=== PATIENT | male | born 1990 | race African-American/Black ===

== ENCOUNTER 2017-08-21 22:29 | Inpatient (IN) | payer MEDICAID ==
[~2017-08-21] VITALS: Ht 177.8 cm; Wt 58.8 kg
[2017-08-21] MEDS ORDERED: LORazepam 2 MG/ML VIAL IM ONE (23:45)
[2017-08-21] MEDS ORDERED: DiphenhydrAMINE HCL 50 MG/ML VIAL IM ONE (23:45)
[2017-08-21] MEDS ORDERED: HALOPERIDOL LACTATE 5 MG/ML VIAL IM ONE (23:45)
[2017-08-22] MEDS ORDERED: DiphenhydrAMINE HCL 25 MG CAPSULE PO ONE
[2017-08-22] MEDS ORDERED: HALOPERIDOL 5 MG TABLET PO ONE
[2017-08-22] MEDS ORDERED: LORazepam 2 MG TABLET PO ONE
[2017-08-22 00:02] LABS: ANION GAP 14 mmol/L (8-16); CALCIUM, TOTAL 9.5 mg/dL (8.8-10.5); CARBON DIOXIDE 25 mmol/L (22-29); CHLORIDE 99 mmol/L (98-107); CREATININE 1.12 mg/dL (0.60-1.30); GLOMERULAR FILTR. RATE CALC > 60 mL/min (>60); POTASSIUM 3.3 mmol/L (3.5-5.1); SODIUM SERUM 138 mmol/L (136-145); UREA NITROGEN, BLOOD 13 mg/dL (7-18)
[2017-08-22 00:04] LABS: BASOPHILS # (AUTO) 0.01 K/uL (0.00-0.20); BASOPHILS % (AUTO) 0.1 % (0.0-2.0); EOSINOPHILS # (AUTO) 0.01 K/uL (0.00-0.70); EOSINOPHILS % (AUTO) 0.08 % (1.0-6.0); HEMATOCRIT 39.8 % (41-53); HEMOGLOBIN 12.9 g/dL (13.5-17.5); LYMPHOCYTES # (AUTO) 1.5 K/uL (1.0-4.8); LYMPHOCYTES % (AUTO) 12.8 % (22.0-44.0); MEAN CORPUSCULAR HEMOGLOBIN 24.1 pg (26.0-34.0); MEAN CORPUSCULAR HGB CONC 32.4 G/dL (31.0-37.0); MEAN CORPUSCULAR VOLUME 74 fL (80-100); MONOCYTES # (AUTO) 0.6 K/uL (0.1-1.0); NEUTROPHILS # (AUTO) 9.8 K/uL (1.8-7.7); PLATELET COUNT (AUTO) 206 K/uL (150-450); RED BLOOD CELL COUNT(AUTO) 5.35 MIL/uL (4.50-5.90); RED CELL DISTRIBUTION WIDTH 16.3 % (11.5-14.5)
[2017-08-22 00:07] LABS: ALANINE AMINOTRANSFERASE 21 U/L (12-78); ALBUMIN 4.7 g/dL (3.4-5.0); ASPARTATE AMINOTRANSFERASE 39 U/L (15-37); BILIRUBIN,TOTAL 0.5 mg/dL (0.1-1.0); TOTAL PROTEIN, SERUM 8.3 g/dL (6.4-8.2)
[2017-08-22] MEDS ORDERED: ZOLPIDEM TARTRATE 10 MG TABLET PO PRN (00:15)
[2017-08-22] MEDS ORDERED: LORazepam 2 MG TABLET PO PRN (00:15)
[2017-08-22] MEDS ORDERED: OLANZapine 5 MG RAPDIS TABLET PO PRN (00:15)
[2017-08-22] MEDS ORDERED: POTASSIUM CHLORIDE 10% 40 MEQ/30 ML LIQUID UDCUP PO ONE (00:45)
[2017-08-22 03:01] VITALS: BP 118/95
[2017-08-22 04:10] LABS: RBC MORPHOLOGY COMMENT ABNORMAL RBC MORPH
[2017-08-22 08:22] VITALS: BP 122/64
[2017-08-22] MEDS ORDERED: MAG HYDROX/AL HYDROX/SIMETH ES 30 ML SUSPENSION UDCUP PO PRN (11:00)
[2017-08-22] MEDS ORDERED: HydrOXYzine PAMOATE 50 MG CAPSULE PO PRN (11:00)
[2017-08-22] MEDS ORDERED: LOPERAMIDE HCL 2 MG CAPSULE PO PRN (11:00)
[2017-08-22] MEDS ORDERED: GuaiFENesin/D-METHORPHAN [SUGAR-FREE] 200-20MG/10 ML SYRUP UDCUP PO PRN (11:00)
[2017-08-22] MEDS ORDERED: ACETAMINOPHEN 325 MG TABLET PO PRN (11:00)
[2017-08-22] MEDS ORDERED: PROMETHAZINE HCL 25 MG TABLET PO PRN (11:00)
[2017-08-22] MEDS ORDERED: MAGNESIUM HYDROXIDE SUSPENSION 30 ML UDCUP PO PRN (11:00)
[2017-08-22] MEDS ORDERED: TUBERCULIN, PURIFIED PROTEIN DERIVATIVE 5 TU/0.1 ML SYG ID ONE (11:00)
[2017-08-22] MEDS: THIAMINE HCL 100 MG TABLET PO SCH (16:05)
[2017-08-22 16:40] VITALS: BP 129/73
[2017-08-22] MEDS ORDERED: OLANZapine 5 MG RAPDIS TABLET PO SCH (21:00)
[2017-08-23 06:04] VITALS: BP 131/85
[2017-08-23 08:35] VITALS: BP 138/78
[2017-08-23] MEDS: THIAMINE HCL 100 MG TABLET PO SCH ×2 (08:51→16:18)
[2017-08-23] MEDS: FOLIC ACID 1 MG TABLET PO SCH (08:51)
[2017-08-23] MEDS: MULTIVITAMINS WITH MINERALS, THERAPEUTIC TABLET PO SCH (08:51)
[2017-08-23] MEDS: NALTREXONE HCL 50 MG TABLET PO SCH (08:51)
[2017-08-23] MEDS ORDERED: IBUPROFEN 600 MG TABLET PO PRN (09:30)
[2017-08-23] MEDS: AMOX TR/POT CLAV 875 MG/125 MG TABLET PO SCH ×2 (10:55→16:18)
[2017-08-23] MEDS ORDERED: NALT50TA PO (13:36)
[2017-08-23] MEDS ORDERED: OLAN5TAB30 PO (13:36)
[2017-08-23 16:33] VITALS: BP 132/82
[2017-08-23] MEDS ORDERED: OLANZapine 5 MG RAPDIS TABLET PO SCH (21:00)
[2017-08-24 06:31] VITALS: BP 127/77
[2017-08-24] MEDS ORDERED: OLAN10TA6 PO (08:12)
[2017-08-24] MEDS ORDERED: NALT50TA6 PO (08:13)
[2017-08-24] MEDS ORDERED: AMOX1TAB16 PO ×2 (08:16→08:32)
[2017-08-24] MEDS: AMOX TR/POT CLAV 875 MG/125 MG TABLET PO SCH (08:46)
[2017-08-24] MEDS: FOLIC ACID 1 MG TABLET PO SCH (08:46)
[2017-08-24] MEDS: NALTREXONE HCL 50 MG TABLET PO SCH (08:46)
[2017-08-24] MEDS: MULTIVITAMINS WITH MINERALS, THERAPEUTIC TABLET PO SCH (08:46)
[2017-08-24] MEDS: THIAMINE HCL 100 MG TABLET PO SCH (08:46)
[2017-08-24 08:48] VITALS: BP 125/84
== END 2017-08-24 14:55 | disposition home or self-care (01) | DRG 885 ==
LOC: EMS 22:30 → B2S 08-22 01:13
PROVIDERS: ADMIT Psychiatry & Neurology Psychiatry; ATTEND Psychiatry & Neurology Psychiatry
DX: F20.0 Paranoid schizophrenia (principal); Z91.19 Patient's noncompliance with other medical treatment and regimen; F15.10 Other stimulant abuse, uncomplicated; Z68.1 Body mass index [BMI] 19.9 or less, adult; E87.6 Hypokalemia; D64.9 Anemia, unspecified; D72.829 Elevated white blood cell count, unspecified; F12.90 Cannabis use, unspecified, uncomplicated; F17.210 Nicotine dependence, cigarettes, uncomplicated; K08.89 Other specified disorders of teeth and supporting structures; Z65.3 Problems related to other legal circumstances
CPT/HCPCS: 84132; 99285; G0480; J1200; J1630; J2060